=== PATIENT | male | born 1995 | race Caucasian/White ===

== ENCOUNTER 2017-04-23 00:47 | Emergency (ER) | payer OTHER ==
[2017-04-23 02:07] VITALS: BP 146/87
[2017-04-24 04:53] LABS: RAPID PLASMA REAGIN Non Reactive (Non Reactive)
== END 2017-04-23 02:07 | disposition home or self-care (01) ==
LOC: ED 00:47
PROVIDERS: Emergency Medicine
DX: N34.2 Other urethritis (principal); F17.200 Nicotine dependence, unspecified, uncomplicated; F12.10 Cannabis abuse, uncomplicated; F15.10 Other stimulant abuse, uncomplicated; F17.210 Nicotine dependence, cigarettes, uncomplicated
CPT/HCPCS: 36415; 87491; 87591; 99406; J0696